=== PATIENT | female | born 1980 | race Caucasian/White ===

== ENCOUNTER 2016-08-30 15:58 | Emergency (ER) | payer SELFPAY ==
[~2016-08-30] VITALS: Ht 170.2 cm; Wt 76.2 kg
[2016-08-30 17:00] VITALS: BP 126/71
[2016-08-30] MEDS ORDERED: ONDANSETRON ODT 4 MG TAB PO ONE (17:30)
[2016-08-30] MEDS ORDERED: HYDROmorphone HCL 2 MG/ML VL IM ONE (17:30)
== END 2016-08-30 18:18 | disposition home or self-care (01) ==
LOC: ER 15:58
DX: G89.29 Other chronic pain (principal); M54.5 Low back pain; Z88.6 Allergy status to analgesic agent
CPT/HCPCS: 96372; 99283; J1170; Q0162